=== PATIENT | male | born 1980 | race Two or more races ===

== ENCOUNTER 2019-09-01 08:24 | Outpatient (CLI) | payer OTHER | END 2019-09-01 08:33 | disposition home or self-care (01) | LOC: SONOGRAMA 08:24 | DX: R31.29 Other microscopic hematuria (principal); R05 Cough ==

== ENCOUNTER 2021-04-28 06:00 | Day surgery (SDC) | payer OTHER ==
[2021-04-28] MEDS ORDERED: PERCOCET 5-3251 EACH PO (08:39)
[2021-04-28] MEDS ORDERED: RECTICARE30 GM TOP (08:40)
== END 2021-04-28 12:50 | disposition home or self-care (01) ==
LOC: CIR.AMB 06:00
PROVIDERS: ATTEND Surgery
DX: K60.3 Anal fistula (principal); Z20.822 Contact with and (suspected) exposure to COVID-19